=== PATIENT | female | born 1955 | race Caucasian/White ===

== ENCOUNTER 2018-06-04 08:02 | Day surgery (SDC) | payer OTHER ==
[2018-06-03 13:57] VITALS: BMI 27.8
[2018-06-04 11:52] VITALS: TEMP 98.1
[2018-06-04 11:55] VITALS: BP 110/56; PULSE 75
== END 2018-06-04 10:15 | disposition home or self-care (01) ==
LOC: FASU-ENDO 08:02
PROVIDERS: ATTEND Internal Medicine Gastroenterology
PROC: 0DJD8ZZ Inspection of Lower Intestinal Tract, Via Natural or Artificial Opening Endoscopic (ICD-10-PCS; principal; 2018-06-04 09:25)
DX: Z12.11 Encounter for screening for malignant neoplasm of colon (principal)